=== PATIENT | male | born 1960 | race Caucasian/White ===

== ENCOUNTER 2016-05-11 08:00 | Emergency (ER) | payer OTHER ==
--- NOTE | 2016-05-11 08:15 | PDOC ---
Body Fluid Exposure HPI - General Chief Complaint: Body Fluid Exposure Stated Complaint: NEEDLE STICK Date Seen by Provider: 05/11/16 Time Seen by Provider: 08:11 Source: POSITIVE: Patient Exam Limitations: POSITIVE: No limitations Nurse's Notes Reviewed & Considered: Yes - History of Present Illness Initial Comments: Patient comes today for evaluation after a needlestick blood exposure. 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 Have you received a tetanus shot in the past 10 years?: Yes Body Location Affected: REPORTS: Upper Extremity (R) (Anterior wrist) Timing: REPORTS: Abrupt Duration: 1/2 hour Location at Time of Onset: REPORTS: Work Context / Mechanism: REPORTS: Needle Stick, Solid Severity: Mild Associated Symptoms: REPORTS: None Any Prior Injuries Related to Current Complaint?: No - Patient Home Medications Home Medications: Home Medications Aspirin/Acetaminophen/Caffeine [Excedrin Extra Strength Caplet] 1 tab PO QD tab 07/30/13 Fexofenadine HCl [Alexa Allergy] 0.5 tab PO BID tab 01/21/15 Zolpidem Tartrate [Ambien] 1 tab PO bedtime PRN tab 01/21/15 Olopatadine HCl [Patanol] 1 drop OP BID #1 bottle 10/12/15 - Patient Allergies Allergies/Adverse Reactions: Allergies Allergy/AdvReac Type Severity Reaction Status Date / Time No Known Allergies Allergy Verified 05/11/16 08:04 Past Medical History - anastasiaen HEENT History: Denies History Cardiovascular History: Denies History Respiratory History: Denies History Gastrointestinal History: Denies History Genitourinary History: Denies History Endocrine History: Denies History Musculoskeletal History: Other (please comment) List Physical Limitations: left oschlagers knee Prosthesis or Implant: No Additional Musculoskeletal History: LEFT ELBOW PAIN Neurological History: Denies History Additional Neurological History: Hx of Tension Headaches-Migraine Headaches Blood Disorders: Denies History Psychiatric History: Denies History History of Sexually Transmitted Diseases: No Cancer History: Denies History History of MDRO: No History of Other Communicable Diseases: No Alcohol Use: None Substance Use Type: None Previous Surgical History: Yes Type / Date of Surgery: T&A/ LEFT ANKLE SX 2013, ORAL Anesthesia Reactions: No Significant Family History: Heart disease, Hypertension ROS - Limitations ROS Limitations: No Limitations Constitution: REPORTS: Denies Symptoms Cardiovascular: REPORTS: Denies Cardiac Symptoms Respiratory: REPORTS: Denies Resp Symptoms Neurological: REPORTS: Denies Neuro Symptoms Gastrointestinal: REPORTS: Denies GI Symptoms Endocrine: REPORTS: Denies Symptoms Musculoskeletal: REPORTS: Denies MS Symptoms Genitourinary: REPORTS: Denies Symptoms Eyes: REPORTS: Denies Symptoms ENT: REPORTS: Denies Symptoms Skin: REPORTS: Other (Needle stick) Lympathic: REPORTS: Denies Lympathic Symptoms Immunologic: POSITIVE: Denies Symptoms Psychiatric: POSITIVE: Denies Psych Symptoms Body Fluid Exposure PE - General Appearance General Appearance: REPORTS: Alert, Cooperative, No Acute Distress - Skin Skin: POSITIVE: Other (Small 2 mm pinprick on the right anterior wrist.) - Neurological / Psychological Neuro / Psych: POSITIVE: Oriented X3 Body Fluid Exposure Progress - Patient's Progress MDM / ED Course: Patient into the emergency department, evaluated. Assessment needlestick injury. Plan: Blood draw on patient and source patient with appropriate labs ordered. Follow-up with physician if positive findings. Police Notified: No - Consult Consult (If Yes, Name of Consulting MD & Time Called): No Counseled: POSITIVE: Patient, RE: DX Patient Care Time - Estimated PCT Patient Care Time (In Minutes): 5 Vital Signs - VS Reviewed Vital Signs Reviewed: Yes Discharge Clinical Impression: Exposure to needle Discharge Disposition: Discharged to Home Condition: Good Patient Instructions Given at Discharge: Needle Stick Injuries (ED)
[2016-05-11 08:22] VITALS: RESP 16; TEMP 98.4
[2016-05-11 08:56] LABS: HIV ANTIBODY NEGATIVE (N); HIV-1 P24 ANTIGEN NEGATIVE (N)
[2016-05-12 15:17] LABS: HCV AB SCREEN Negative (Negative); HEPATITIS B SURF AB QL Positive (())
== END 2016-05-11 08:32 | disposition home or self-care (01) ==
LOC: ER 08:00
DX: Z77.21 Contact with and (suspected) exposure to potentially hazardous body fluids (principal); W22.8XXA Striking against or struck by other objects, initial encounter; Y99.0 Civilian activity done for income or pay
CPT/HCPCS: 99282

== ENCOUNTER → 2016-07-19 | Outpatient (CLI) | payer OTHER ==
--- NOTE | 2016-07-20 12:10 | DI ---
MRI LOW EXTREMITY JNT W/O CN,07/19/2016 3:11 PM: Clinical History: Left medial knee pain status post fall. Previous Exam: None at this facility. Findings: Multiplanar MR images are obtained through the left knee without contrast, and demonstrate anatomic a lignment without fractures. Marrow signal is preserved. There is a slightly complex oblique tear through the posterior horn of the medial meniscus extending to the undersurface. The medial collateral ligament is normal. The anterior and posterior cruciate ligaments are intact. The lateral meniscus demonstrates a very sm all free edge tear but is otherwise normal. The posterior lateral corner is normal. There is no evidence of Waggoner's cyst. The patellar tendon is within normal limits. The quadriceps tendon is also normal. There is some very mild increased T2 signal at the insertion on the tibial tubercle. The surrounding musculature and the major vascular flow voids are unremarkable. There is no evidence of knee joint effusion. Impression: 1. Complex oblique tear of the posterior horn and body of the medial meniscus exiting on the undersur face. This may not the an acute process as there is no knee joint effusion. 2. Slightly increased T2 signal of the distal patellar tendon. This could represent some mild patella r tendinitis or an old injury.
== END ==
LOC: MRI 15:10
PROVIDERS: ATTEND Physician Assistant Medical
DX: M92.52 Juvenile osteochondrosis of tibia tubercle (principal); M23.222 Derangement of posterior horn of medial meniscus due to old tear or injury, left knee
CPT/HCPCS: 73721

== ENCOUNTER → 2016-10-24 | Outpatient (CLI) | payer OTHER ==
[2016-10-24 08:47] LABS: CHOL/HDL RATIO 3.7 RATIO (0-4.0); LDL CHOLESTEROL,CALCULATED 107.2 mg/dL
[2016-10-24 09:48] LABS: VITAMIN D 25-HYDROXY 55.9 NG/ML (30-100)
== END ==
LOC: LAB 07:38
PROVIDERS: ATTEND Nurse Practitioner Family
DX: R53.83 Other fatigue (principal); Z82.49 Family history of ischemic heart disease and other diseases of the circulatory system
CPT/HCPCS: 36415; 80061; 82306; 82947; 84443